=== PATIENT | male | born 2000 | race Caucasian/White ===

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

== ENCOUNTER 2022-04-10 20:26 | Emergency (ER) | payer MEDICAID, SELFPAY ==
[2022-04-10 20:33] VITALS: BP 129/78; PULSE 98; RESP 18; TEMP 36.6; O2SAT 97
--- NOTE | 2022-04-10 20:45 | DI.RAD_ITS ---
Exam(s) XR KNEE RT 4V+ EXAM: XR KNEE RT 4V+ CLINICAL HISTORY: struck with softball. TECHNIQUE: 2D digital imaging was performed. Three views. COMPARISON: CR,XR XR KNEE LT 3V AP,LAT,ALTAF from 06/18/2021 FINDINGS: BONES: No acute fracture is present. No bony destructive lesion is seen. JOINTS: The knee is normally aligned. No joint effusion is seen. SOFT TISSUE: Normal. IMPRESSION: Unremarkable radiographs of the right knee. DATA REPOSITORY: RADIATION DOSE DELIVERED:
--- NOTE | 2022-04-10 21:01 | ED.GENADUL_ITS ---
Discharge Plan Disposition Patient Disposition: HOME Condition: Stable Discharge Details Clinical Impression: Knee pain, right Primary Care Provider: Malika Lyons ED Provider: Graham Ojeda Home Meds and New Rx's Prescriptions: Continued sertraline 100 mg tablet 100 mg PO DAILY Qty: 30 1RF Rx Instructions: take one tablet once days Discharge Instructions Instructions: Knee Pain (ED) Additional Instructions: X-ray is unremarkable. Wear Mike wrap and or sleeve as needed, advance activity as tolerated. Rest, elevate, cool compresses every 2 hours for 20 minutes. [id number] Tylenol and/or Motrin as directed for discomfort. Please watch for new or worsening symptoms and return to the ER for any concerns. Lastly, I have given you the name and number of our local orthopedic team, please follow- up in 1 to 2 weeks if symptoms not improving Referrals: Luis Modi MD [ [facility] STAFF PHYSICIAN] - Discharge Data Discharge Date/Time-TO BE ENTERED AT DEPARTURE: 04/10/22 22:44 Medical Decision Making 21-year-old male who was struck directly in his right knee with a softball on Monday, subsequently falling. He was running to [place] and the ball was missed by the first basement striking him in the leg. He denies any other in jury. He has been ambulatory. Examination consistent with a contusion. Will obtain x-ray to rule out bony involvement or effusion X-ray unremarkable. Discussed options such as Mike wrap and crutches, patient declines. We discussed conservative measures with [id number] medication, resting, elevating, cool compresses, and if symptoms persist orthopedic follow- up. Standard discharge and return precautions were provided. Patient understands, is agreeable to this plan, and has no additional questions or concerns upon discharge. This documentation was generated using [employer] system, please disregard any oddities of phrase or misspellings. Medical Records Medical records reviewed: Yes I reviewed the patient's medical records. Imaging Data Radiologic Study: Attestation: I personally reviewed and interpreted this imaging study as follows: Imaging: X-Ray Radiologist's impression: PROCEDURE INFORMATION: Exam: XR Right Knee Exam date and time: 04/10/2022 9:34 PM Age: 21 years old Clinical indication: Pain; Right; Patient HX: Struck by softball lateral R knee TECHNIQUE: Imaging protocol: Radiologic exam of the Right knee. Views: 4 or more views. COMPARISON: CR RIGHT FOOT COMPLETE 01/24/2018 5:58 PM FINDINGS: Mildly limited due to positioning on the lateral film Bones/joints: No acute fracture or dislocation Soft tissues: Normal. IMPRESSION: No acute findings. HPI General Mode of arrival: ambulatory . Date/Time Provider Initiated Documentation: 04/10/22 20:55 . Limitations to Documentation: no limitations . Information obtained by: patient . History of Present Illness 21 year old M presents to the emergency department with the chief complaint of R knee pain, described as moderate, with intensity rated at 6. Quality is described as aching, and is localized to the right and lower extremity. Patient reports no radiation. Patient started experiencing this day(s) (3) and it has been constant. Immobilization improves symptom(s), Movement worsens symptoms . Patient notes no other symptoms.. Patient did receive the following treatments prior to arrival, none Related Data Home Medications Medication Instructions Recorded Confirmed sertraline 100 mg tablet 100 mg PO DAILY #30 tabs 12/29/21 04/10/22 Previous Rx's Medication Instructions Recorded sertraline 100 mg tablet 100 mg PO DAILY #30 tabs 12/29/21 Allergies Allergy/AdvReac Type Severity Reaction Status Date / Time No Known Allergies Allergy Verified 11/17/21 14:28 General Stated Complaint: Orthopedic JAIMIE: 4 Review of Systems Constitutional Constitutional: Denies weakness Musculoskeletal Musculoskeletal: Reports arthralgias, Denies numbness, Reports stiffness and Denies tingling Integumentary/Breasts Skin/Breast: Denies erythema Neurologic Neurologic: Denies numbness, Denies tingling and Denies weakness PFSH All Active Problems (Updated 04/10/22 @ 22:32 by STELLA Martell) Knee pain, right (Acute) Insomnia (Acute) Suicidal ideation (Acute) Anxiety and depression (Chronic) Use of cannabis (Chronic) History of meniscal tear (Chronic) partial tear of meniscus of right knee Low back pain (Chronic) secondary to injury about 6 years and 3 years ago Problems with learning (Chronic) History of diagnosis of ADHD and ODD- no meds currently; IEP in place for reading comprehension, written expression, and math calculation support Surgical History Adenoidectomy Myringotomy w/ PE (pressure equalizing) tubes Family History Mother Hyperlipidemia Mental disorder depression or anxiety Hypertension Father Asthma Sibling Mental disorder depression or anxiety Social History Smoking/Tobacco Use Status: Never Second Hand Exposure: Yes Smoking risk assessment performed?: Yes Alcohol Intake: current Alcohol Intake frequency: holidays/special occasions only Drug use: Daily Substance use type: marijuana Household members: other Details: Was living with mom but she is moving to [place]; now with dad Education Level: high school Details: 12th grade [employer] Fall 2020 Pets and animals: Yes Pets and animals: dog(s) Sexually active: Yes Do you think of yourself as: straight/heterosexual Current gender identity: male What type of physical activity do you participate in: other Details: active in sports- soccer mostly- may play baseball and basketball as well Seatbelt use: always Helmet use: Yes 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 ) Do you feel safe at home: Yes Do you feel safe in your relationship?: Yes Additional Social history: Living with dad who has CTE and is disabled- unable to drive; 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; has been working at [employer] as a [employer] Exam Const General: cooperative, healthy appearing, comfortable and no acute distress Orientation: alert and awake [facility] Head: normal to inspection, normocephalic and atraumatic Eyes Conjunctivae: conjunctivae normal Neck Neck: normal visual inspection, trachea midline and supple Resp Effort & Inspection: normal respiratory effort and able to speak in complete sentences Cardio Rate: regular rate Rhythm: regular rhythm Skin General skin exam: no rashes or lesions noted Neuro General: patient alert, patient awake, moves all extremities and no focal motor deficits Cognition: normal cognition Speech: speech normal Gait: antalgic (Minimally) Sensory Exam: no sensory deficits noted Extrem General: full ROM and capillary refill normal Knee images: 1. Contusion, tenderness. Knee with full range of motion. Stable. Slight increased pain with valgus stress, no laxity. Neuro, vascular, tendon intact. Psych Appearance: grossly normal Mental Status: mental status grossly normal Course Vital Signs Vital signs: Vital Signs Temperature 36.6 C 04/10/22 20:33 Pulse 98 H 04/10/22 20:33 Respiratory Rate 18 04/10/22 20:33 Blood Pressure 129/78 04/10/22 20:33 Pulse Oximetry 97 04/10/22 20:33 Temperature 36.6 C 04/10/22 20:33 Temperature Source Skin 04/10/22 20:33 Pulse 98 H 04/10/22 20:33 Respiratory Rate 18 04/10/22 20:33 Respiratory Effort 04/10/22 20:36 Blood Pressure 129/78 04/10/22 20:33 Blood Pressure Position Sitting 04/10/22 20:33 Pulse Oximetry 97 04/10/22 20:33 Oxygen Delivery Method Room Air 04/10/22 20:33 Oxygen Flow Rate 0 04/10/22 20:33 Pain Level 7 04/10/22 20:36 Comment 04/10/22 20:33
--- NOTE | 2022-04-10 22:31 | DI.VRAD_ITS ---
PROCEDURE INFORMATION: Exam: XR Right Knee Exam date and time: 04/10/2022 9:34 PM Age: 21 years old Clinical indication: Pain; Right; Patient HX: Struck by softball lateral R knee TECHNIQUE: Imaging protocol: Radiologic exam of the Right knee. Views: 4 or more views. COMPARISON: CR RIGHT FOOT COMPLETE 01/24/2018 5:58 PM FINDINGS: Mildly limited due to positioning on the lateral film Bones/joints: No acute fracture or dislocation Soft tissues: Normal. IMPRESSION: No acute findings. Dictated and Authenticated by: Shai Aguilar MD. Ordering:QUOC Stevenson MD
== END 2022-04-10 22:44 | disposition home or self-care (01) ==
PROVIDERS: Emergency Provider Physician Assistant
DX: S80.01XA Contusion of right knee, initial encounter (principal); W21.07XA Struck by softball, initial encounter; W18.39XA Other fall on same level, initial encounter; Y93.02 Activity, running
CPT/HCPCS: 99283; 73564; 99282

== ENCOUNTER 2023-03-11 16:56 | Emergency (ER) | payer MEDICAID, SELFPAY ==
[2023-03-11 16:57] VITALS: BP 162/105; PULSE 85; RESP 15; O2SAT 98
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
[2023-03-11 17:03] VITALS: BP 162/105; PULSE 71
[2023-03-11 17:16] VITALS: BP 164/99; PULSE 65
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
[2023-03-11 17:39] VITALS: BP 153/100; PULSE 65
[2023-03-11] MEDS: Ibuprofen 600 MG TAB PO (17:39)
[2023-03-11] MEDS: Ondansetron O.D.T. 4 MG TABEF PO (17:39)
[2023-03-11] MEDS: Acetaminophen 500 MG TAB 1000 MG PO (17:39)
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
== END 2023-03-11 18:55 | disposition home or self-care (01) ==
PROVIDERS: Emergency Provider Nurse Practitioner Acute Care
DX: S09.90XA Unspecified injury of head, initial encounter (principal); R51.9 Headache, unspecified; R11.2 Nausea with vomiting, unspecified; V43.52XA Car driver injured in collision with other type car in traffic accident, initial encounter
CPT/HCPCS: 96374; 96375; 99284; 70450; 72125; 99283

== ENCOUNTER 2024-01-27 00:52 | Emergency (ER) | payer MEDICAID, SELFPAY ==
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
[2024-01-27 00:55] VITALS: BP 160/84; PULSE 103; RESP 14; TEMP 36.3; O2SAT 100
--- NOTE | 2024-01-27 01:00 | ED.GENADUL_ITS ---
Discharge Plan Disposition Patient Disposition: Home Condition: Good Discharge Details Clinical Impression: Contusion of hand, right, Right wrist sprain Primary Care Provider: Unknown,Unknown ED Provider: Tomy Quesada Home Meds and New Rx's Prescriptions: No Action sertraline 100 mg tablet 150 mg PO DAILY Rx Instructions: take one tablet once days Discharge Instructions Instructions: Minor Contusion ED Additional Instructions: At this time the radiologist does not see any evidence of a fracture for your hand or your wrist. There could be a very small fracture that can just not be visualized at this time. Please take Tylenol and Motrin for pain, ice the area frequently. Use the wrist splint for the next 1 to 2 weeks. If you still have persistent or worsening pain after 1 to 2 weeks of conservative therapy you may need repeat x-rays for reassessment. If you notice any worsening of your symptoms, or any new symptoms such as vomiting, diarrhea, fever, chills, shortness of breath, chest pain, numbness, weakness, or fainting , please return immediately to the emergency department for reevaluation. Please follow up with your primary care provider as soon as possible for reassessment and reevaluation. As always, it was a pleasure participating in your medical care today. Stand Alone Forms: Work Release HPI General Date/Time Provider Initiated Documentation: 01/27/24 00:55 . HPI Narrative: This is a 23-year-old male with a past medical history of anger issues, previous injury to his right dominant hand and wrist from punching things, presents today for evaluation of right hand and wrist pain after punching things. Patient got angry at work, hit his hand on a wall and then punched a door. He developed pain over the second third and fourth MCP joints, as well as the anatomical snuffbox. He came into the ER for further assessment. Pain is present with movement. Improved by nothing. He denies numbness or tingling. Related Data Home Medications ?Medication ?Instructions ?Recorded ?Confirmed sertraline 100 mg tablet 150 mg PO DAILY 01/27/24 01/27/24 Allergies Allergy/AdvReac Type Severity Reaction Status Date / Time No Known Allergies Allergy Verified 01/27/24 01:17 General Stated Complaint: Orthopedic JAIMIE: 4 Review of Systems All systems reviewed & are unremarkable except as noted in HPI and below Exam Narrative Exam Narrative: 1.Const: Well-nourished, Well-developed, appearing stated age 2.Eyes: PERRL, no conjunctival injection, and symmetrical lids. 3.ENT: Atraumatic external nose and ears. Moist MM. Neck: Symmetric, trachea midline, No thyromegaly. 4.CVS: +S1/S2, No murmurs or gallops. Peripheral pulses 2+ and equal in all extremities. Brisk capillary refill in all extremities. 5.RESP: Unlabored respiratory effort. Clear to auscultation bilaterally. No wheezes rales or rhonchi 6.GI: Soft, Nontender/Nondistended, No hepatosplenomegaly. No guarding or rebound. 7.MSK: Patient demonstrates tenderness over the second third and fourth MTP joints in the right hand, minimal swelling. There is also mild tenderness over the anatomical snuffbox. No redness or deformity otherwise. 8.Skin: Warm, Dry. No rashes or lesions. 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 Sensation grossly intact, no focal neurologic deficits. 10.Psych: (AAO) x3. Appropriate mood and affect Course Vital Signs Vital signs: Vital Signs Temperature 36.3 C L 01/27/24 00:55 Pulse 103 H 01/27/24 00:55 Respiratory Rate 14 01/27/24 00:55 Blood Pressure 160/84 H 01/27/24 00:55 Pulse Oximetry 100 01/27/24 00:55 Temperature 36.3 C L 01/27/24 00:55 Temperature Source Tympanic 01/27/24 00:55 Pulse 103 H 01/27/24 00:55 Respiratory Rate 14 01/27/24 00:55 Blood Pressure 160/84 H 01/27/24 00:55 Blood Pressure Position Sitting 01/27/24 00:55 Pulse Oximetry 100 01/27/24 00:55 Oxygen Delivery Method Room Air 01/27/24 00:55 Oxygen Flow Rate 0 01/27/24 00:55 Pain Level 8 01/27/24 00:55 Medical Decision Making This is a 23-year-old male with a past medical history of anger issues, previous injury to his right dominant hand and wrist from punching things, presents today for evaluation of right hand and wrist pain after punching things. Patient got angry at work, hit his hand on a wall and then punched a door. He developed pain over the second third and fourth MCP joints, as well as the anatomical snuffbox. He came into the ER for further assessment. Pain is present with movement. Improved by nothing. He denies numbness or tingling. Exam demonstrates tenderness over the second third and fourth MTP joints, as well as the anatomical snuffbox on the right. No other abnormality deformity or tenderness. Differential is highest for contusion versus fracture. Will get x- rays of the wrist and hand, give Tylenol Motrin monitor closely and reassess. 2 AM X-ray shows no evidence of acute fracture per radiology. However because of the patient's tenderness over the anatomical snuffbox we will get a thumb spica for the patient's use at home. Recommend avoidance of aggravating activities, recommend Tylenol Motrin and ice. Discussed red flags which to return. I have extensively reviewed the treatment plan and discharge instructions with the patient. I have addressed all patient concerns at this time. The patient was made aware of what symptoms to monitor for that would warrant a return to the emergency department. Discussed the plan with the patient, they demonstrate ve rbal understanding and agreement with our assessment and plan at this time. The documentation in this chart was dictated using [employer] dictation software. Please excuse any dictation errors. FINDINGS: Bones/joints: Bone mineralization is age-appropriate. There is no evidence of fracture. No evidence of dislocation. The joint spaces are adequately preserved; no significant degenerative narrowing and no bony erosion seen. Soft tissues: No radiopaque foreign body present. There is mild soft tissue swelling present. IMPRESSION: 1. No acute osseous abnormality. 2. There is mild soft tissue swelling present. Thank you for allowing us to participate in the care of your patient. Dictated and Authenticated by: Royce Osorio MD 01/27/2024 1:26 AM Eastern Time ([place] & [place]) Quality:SDOH Health Related Social Needs: No Data to Display PFSH All Active Problems (Updated 01/27/24 @ 01:43 by Tomy Quesada DO) Right wrist sprain (Acute) Contusion of hand, right (Acute) Insomnia (Acute) Suicidal ideation (Acute) Anxiety and depression (Chronic) Use of cannabis (Chronic) History of meniscal tear (Chronic) partial tear of meniscus of right knee Low back pain (Chronic) secondary to injury about 6 years and 3 years ago Problems with learning (Chronic) History of diagnosis of ADHD and ODD- no meds currently; IEP in place for reading comprehension, written expression, and math calculation support Surgical History Myringotomy w/ PE (pressure equalizing) tubes Adenoidectomy Family History Mother Hyperlipidemia Mental disorder depression or anxiety Hypertension Father Asthma Sibling Mental disorder depression or anxiety Social History Smoking/Tobacco Use Status: Current every day Tobacco Type: e-cigarettes Second Hand Exposure: Yes Smoking risk assessment performed?: Yes Alcohol Intake: current Alcohol Intake frequency: a few times a week Alcohol type: beer and hard liquor Drug use: Daily Substance use type: marijuana Household members: other Details: Was living with mom but she is moving to [place]; now with dad Education Level: high school Details: 12th grade [employer] Fall 2020 Pets and animals: Yes Pets and animals: dog(s) Sexually active: Yes Do you think of yourself as: straight/heterosexual Current gender identity: male What type of physical activity do you participate in: other Details: active in sports- soccer mostly- may play baseball and basketball as well Seatbelt use: always Helmet use: Yes 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
[2024-01-27] MEDS: Acetaminophen 500 MG TAB 1000 MG PO (01:11)
[2024-01-27] MEDS: Ibuprofen 800 MG TAB PO (01:11)
--- NOTE | 2024-01-27 01:26 | DI.VRAD_ITS ---
PROCEDURE INFORMATION: Exam: XR Right Hand Exam date and time: 01/27/2024 1:13 AM Age: 23 years old Clinical indication: Injury or trauma; Other: Punched wall, pain at snuff box; Blunt trauma (contusions or hematomas); Hand; Right TECHNIQUE: Imaging protocol: Radiologic exam of the right hand. Views: 3 or more views. COMPARISON: No relevant prior studies available. FINDINGS: Bones/joints: Bone mineralization is age-appropriate. There is no evidence of fracture. No evidence of dislocation. The joint spaces are adequately preserved; no significant degenerative narrowing and no bony erosion seen. Soft tissues: No radiopaque foreign body present. There is mild soft tissue swelling present. IMPRESSION: 1. No acute osseous abnormality. 2. There is mild soft tissue swelling present. Dictated and Authenticated by: Royce Osorio MD. Ordering:ZULAY Huitron MD
--- NOTE | 2024-01-27 01:27 | DI.VRAD_ITS ---
PROCEDURE INFORMATION: Exam: XR Right Wrist Exam date and time: 01/27/2024 1:13 AM Age: 23 years old Clinical indication: Injury or trauma; Other: Punched wall, pain at snuff box; Blunt trauma (contusions or hematomas); Wrist; Right TECHNIQUE: Imaging protocol: Radiologic exam of the right wrist. Views: 3 or more views. COMPARISON: CR XR HAND RT COMPLETE 01/27/2024 1:13 AM FINDINGS: Bones/joints: Bone mineralization is age-appropriate. There is no evidence of fracture. No evidence of dislocation. The joint spaces are adequately preserved; no significant degenerative narrowing and no bony erosion seen. Soft tissues: No radiopaque foreign body present. There is mild soft tissue swelling present. IMPRESSION: 1. No acute osseous abnormality. 2. There is mild soft tissue swelling present. Dictated and Authenticated by: Royce Osorio MD. Ordering:ZULAY Huitron MD
== END 2024-01-27 01:54 | disposition home or self-care (01) ==
PROVIDERS: Emergency Provider Student in an Organized Health Care Education/Training Program
DX: S60.221A Contusion of right hand, initial encounter (principal); S63.501A Unspecified sprain of right wrist, initial encounter; W22.01XA Walked into wall, initial encounter; Y93.89 Activity, other specified; F17.290 Nicotine dependence, other tobacco product, uncomplicated
CPT/HCPCS: 99283; 73110; 73130

== ENCOUNTER 2024-04-30 00:05 | Emergency (ER) | payer MEDICAID, SELFPAY ==
[2024-04-30 00:08] VITALS: BP 152/87; PULSE 78; RESP 16; TEMP 37.1; O2SAT 99
[2024-04-30 00:13] VITALS: RESP 27
--- NOTE | 2024-04-30 00:14 | ED.GENADUL_ITS ---
Discharge Plan Disposition Patient Disposition: Home Condition: Good Discharge Details Clinical Impression: Acute anxiety Primary Care Provider: Unknown,Unknown ED Provider: Jem Song and New Rx's Prescriptions: Continued sertraline 100 mg tablet 150 mg PO DAILY Rx Instructions: take one tablet once days Discharge Instructions Instructions: Anxiety, Adult ED Additional Instructions: Your EKG, chest x-ray, laboratory studies and exam are all reassuring. Be sure to take your sertraline daily as prescribed. Please follow-up with your primary care within the next week. Return to ED for any syncope, new or worsening pain, neurologic change, other concerns. HPI General Mode of arrival: ambulatory . Date/Time Provider Initiated Documentation: 04/30/24 00:14 . Limitations to Documentation: no limitations . Information obtained by: patient and RN notes reviewed . HPI Narrative: Patient presenting to ED with complaint of chest and back pain. Patient reports developed anxiety attack over the last couple of hours. He has had these many times in the past. What he has not had was chest pain and tightness as well as pain in his back. He has felt lightheaded and dizzy but has not had syncope. Denies any neurologic change. Denies any headache. Has not been sick recently and denies fever, cough, abdominal pain, vomiting, diarrhea. Denies any cocaine use. He does smoke electronic cigarettes. Denies any significant past medical history. Of note has not taken his sertraline in about a week. Did take it today. Related Data Home Medications ?Medication ?Instructions ?Recorded ?Confirmed sertraline 100 mg tablet 150 mg PO DAILY 01/27/24 04/30/24 Allergies Allergy/AdvReac Type Severity Reaction Status Date / Time No Known Allergies Allergy Verified 04/30/24 00:11 General Stated Complaint: Anxiety JAIMIE: 3 Review of Systems Narrative: Per HPI Exam Narrative Exam Narrative: Const: WDWN male in NAD. VS per triage. HEENT: NC/AT. Normal facial exam. Neck: Supple. Trachea midline. Lungs: Normal respiratory effort. Lungs are clear. Cor: RRR without murmur. Good radial pulses. GI: Soft/ND/NT. Neuro: A+O x 3. Normal speech, mentation, gait. Cranial nerves II - XII grossly intact. No gross motor or sensory deficit. Ext: No C/C/E. Course Vital Signs Vital signs: Vital Signs Temperature 98.7 F 04/30/24 00:08 Pulse 78 04/30/24 00:08 Respiratory Rate 16 04/30/24 00:08 Blood Pressure 152/87 H 04/30/24 00:08 Pulse Oximetry 99 04/30/24 00:08 Temperature 98.7 F 04/30/24 00:08 Temperature Source Temporal Artery Scan 04/30/24 00:08 Pulse 78 04/30/24 00:08 Respiratory Rate 16 04/30/24 00:08 Blood Pressure 152/87 H 04/30/24 00:08 Blood Pressure Position Sitting 04/30/24 00:08 Pulse Oximetry 99 04/30/24 00:08 Oxygen Delivery Method Room Air 04/30/24 00:08 Oxygen Flow Rate 0 04/30/24 00:08 Pain Level 9 04/30/24 00:08 Medical Decision Making Patient presenting to ED with chest pain and back pain associated with acute anxiety/panic attack. Some symptoms consistent with his previous problems with anxiety. Hyperventilation present and causing his lightheaded and dizziness. He reports that he has never had chest pain or back pain like this. Suspect it is likely all related to his anxiety attack. He is low risk for PE and subsequently PERCs out. An EKG is sinus rhythm with early repolarization likely normal variant given his age. Given his e-cigarette use and nonspecific EKG changes he does score a 2 on HEAR. He has breath sounds bilaterally and I doubt pneumothorax but will obtain chest x-ray. Presentation is not concerning for aortic dissection. Will obtain labs including a delta troponin. Patient's laboratory studies are all normal. Chest x-ray per my read with no acute cardiopulmonary disease. Patient encouraged to continue his sertraline and follow-up with primary care. Return precautions provided. Imaging Data Radiologic Study: Attestation: I personally reviewed and interpreted this imaging study as follows: Imaging: X-Ray My impression: Normal CXR Lab Data Lab results reviewed: Yes I reviewed the patient's lab results. Lab results narrative: see [facility] ECG Data Attestation: I personally reviewed and interpreted this ECG (s) as follows: Prior ECG tracings: not available for review Interpretation: see [facility] PFSH All Active Problems (Updated 04/30/24 @ 02:16 by Jem Song MD) Acute anxiety (Acute) Insomnia (Acute) Use of cannabis (Chronic) History of meniscal tear (Chronic) partial tear of meniscus of right knee Low back pain (Chronic) secondary to injury about 6 years and 3 years ago Problems with learning (Chronic) History of diagnosis of ADHD and ODD- no meds currently; IEP in place for reading comprehension, written expression, and math calculation support Medical History Anxiety and depression Surgical History Myringotomy w/ PE (pressure equalizing) tubes Adenoidectomy Family History Mother Hyperlipidemia Mental disorder depression or anxiety Hypertension Father Asthma Sibling Mental disorder depression or anxiety Social History Smoking/Tobacco Use Status: Current every day Tobacco Type: e-cigarettes Second Hand Exposure: Yes Smoking risk assessment performed?: Yes Alcohol Intake: current Alcohol Intake frequency: a few times a week Alcohol type: beer and hard liquor Drug use: Daily Substance use type: marijuana Details: BINGE DRINKS ALCOHOL AND USES MARAJUANA DAILY Household members: other Details: Was living with mom but she is moving to [place]; now with dad Housing: apartment Education Level: high school Details: 12th grade [employer] Fall 2020 Pets and animals: Yes Pets and animals: dog(s) Sexually active: Yes Do you think of yourself as: straight/heterosexual Current gender identity: male What type of physical activity do you participate in: other Details: active in sports- soccer mostly- may play baseball and basketball as well Seatbelt use: always Helmet use: Yes Drive 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
--- NOTE | 2024-04-30 00:15 | RT.EKG_ITS ---
APPROVED REPORT Exam: Resting ECG Reason for Exam: Patient Location: E HR:66 bpm ECG Measurements Heart Rate 66 AXIS WA 154 P 71 QRSd 83 QRS 85 QT 379 T 49 QTc 399 Conclusion Sinus rhythm...normal P axis, V-rate 60- 99 ST elev, probable normal early repol pattern...ST elevation, age<55 Normal Lucas I have reviewed and interpreted ECG and agree with software generated interpretation.
--- NOTE | 2024-04-30 00:15 | DI.RAD_ITS ---
Exam(s) XR CHEST 2V PA LATERAL EXAM: XR CHEST 2V PA LATERAL CLINICAL HISTORY: CP TECHNIQUE: 2D digital imaging was performed. Two views. COMPARISON: No exams were available for comparison FINDINGS: HEART: Normal size. Aorta: Not dilated. PULMONARY VASCULATURE: Normal. MEDIASTINUM: Unremarkable. LUNGS: Clear. PLEURAL SPACE: No pleural effusion or pneumothorax. BONE:Unremarkable for age. SOFT TISSUES: Unremarkable. IMPRESSION: No acute abnormality. DATA REPOSITORY: RADIATION DOSE DELIVERED:
[2024-04-30 00:45] LABS: HCT 47.2 % (40.0-50.0); HGB 15.6 g/dL (13.5-17.5); MCH 29.3 pg (27.0-33.0); MCHC 33.1 % (32.0-36.0); MCV 89 fL (80-95); MPV 10.2 fL (8.0-11.0); Platelet Count 215 10^3/uL (130-400); RBC 5.33 10^6/uL (4.36-5.78); RDW 13.9 % (11.8-14.1); RDW-SD 45.1 fL; WBC 10.57 10^3/uL (4.4-10.8)
[2024-04-30 01:03] LABS: Troponin I 7 ng/L (<or=76)
[2024-04-30 01:09] LABS: Anion Gap 6.1 mmol/L (3-11); BUN 16 mg/dL (7-18); CO2 28.9 mmol/L (21.0-32.0); Calcium 9.9 mg/dL (8.5-10.1); Chloride 106 mmol/L (98-107); Estimated GFR 109.81 (mL/min/1.73m2); Glucose 97 mg/dL (74-106); Magnesium 2.4 mg/dL (1.8-2.4); Potassium 4.4 mmol/L (3.5-5.1); Sodium 141 mmol/L (136-145); TSH (W/Ref FT4) 3.56 uIU/mL (0.36-3.74)
[2024-04-30 02:02] LABS: Troponin I 5 ng/L (<or=76)
[2024-04-30 02:24] VITALS: BP 129/72; PULSE 65; RESP 16; O2SAT 100
--- NOTE | 2024-04-30 02:30 | DI.VRAD_ITS ---
PROCEDURE INFORMATION: Exam: XR Chest Exam date and time: 04/30/2024 12:59 AM Age: 23 years old Clinical indication: Pain; Other: Cp TECHNIQUE: Imaging protocol: Radiologic exam of the chest. Views: 2 views. COMPARISON: CT HEAD CERVICAL SPINE WO 03/11/2023 5:23 PM FINDINGS: Lungs: Unremarkable. No consolidation. Pleural spaces: Unremarkable. No pleural effusion. No pneumothorax. Heart/Mediastinum: Unremarkable. No cardiomegaly. Bones/joints: Unremarkable. IMPRESSION: Normal chest x-ray. Dictated and Authenticated by: Cleve Cox MD. Ordering:TRAE Parish MD
== END 2024-04-30 02:26 | disposition home or self-care (01) ==
PROVIDERS: Emergency Provider Emergency Medicine
DX: R07.9 Chest pain, unspecified (principal); R42 Dizziness and giddiness; F41.9 Anxiety disorder, unspecified
CPT/HCPCS: 36415; 80048; 85027; 93005; 99283; 71046; 83735; 84443; 84484; 93010

== ENCOUNTER 2025-03-22 12:41 | Emergency (ER) | payer SELFPAY ==
[2025-03-22 12:46] VITALS: BP 127/91; PULSE 75; RESP 16; TEMP 36.6; O2SAT 98
--- NOTE | 2025-03-22 13:39 | ED.GENADUL_ITS ---
Discharge Plan Disposition Patient Disposition: Home Discharge Details Clinical Impression: Depression with suicidal ideation, Use of cannabis Primary Care Provider: None,None ED Provider: Yariel Zamudio Home Meds and New Rx's Prescriptions: No Action sertraline 100 mg tablet 150 mg PO DAILY Rx Instructions: take one tablet once days Discharge Instructions Instructions: Suicide Prevention, Depression, Adult ED Additional Instructions: Please follow-up with your primary care provider regarding your visit to the emergency department today. Be sure to discuss results of all test performed here today to include radiology, and laboratory testing as well as results for any pending cultures. Should your symptoms worsen, or if you develop new concerning symptoms, please return immediately emergency department for further evaluation. Discharge Data Discharge Date/Time-TO BE ENTERED AT DEPARTURE: 03/22/25 16:41 HPI General Date/Time Provider Initiated Documentation: 03/22/25 12:43 . HPI Narrative: MDM/Narrative: 1. Suicidal ideation. Presents with active suicidal ideation, a plan involving his father's gun. Medically cleared by SMART clearance protocol. Will be moved to Zone B and engage mental health team for further assessment. ED Course: Case discussed with [facility] who has evaluated the patient and was able to safety plan with him and is deemed stable for discharge. Disposition: Discharge following safety planning with [facility] and planned outpatient follow up This document was created with assistance from BECKIE Elliott. The patient consented to its use. HPI: The patient is a 24-year-old male with a history of depression, presenting for evaluation of suicidal ideation. The patient reports experiencing significant psychosocial stressors related to occupational and personal circumstances over the past year, resulting in feelings of entrapment and hopelessness. He recently disclosed to his family thoughts of self-harm involving his father's firearm, which he no longer has access to. Several months prior, he attempted suicide by hanging, but the attempt was unsuccessful due to the rope breaking, an incident he had not previously disclosed. The patient denies any physical complaints, neurological symptoms, visual or auditory hallucinations, or homicidal ideation. He admits to intermittent cannabis use but denies the use of other illicit substances. He has a history of pharmacological treatment for depression, although he is unable to recall the specific medication. ROS: Negative besides as mentioned above Exam: Vital signs: Reviewed. General Appearance: Alert and oriented. No acute distress. HEENT: NCAT, EOMI, not icteric. External ears normal. No rhinorrhea. Moist mucous membranes. Neck: Supple, full range of motion, no observable masses, No meningeal sign. Respiratory: No Respiratory distress. No tachypnea. Cardiovascular: RRR, no edema. Gastrointestinal: Soft, nondistended, No rebound tenderness. Back: No midline tenderness to palpation or palpable step-offs of the C/T/L spine. Skin: Warm and dry, no rash. Neurological: Normal Gait, Grossly intact. Psychiatric: Appropriate for situation. Laboratory Tests Range/Units 03/22/25 14:12 Urine Color (Yellow) Yellow Urine Clarity (Clear) Clear Urine pH (5-8) 7.0 Ur Specific [place] (1.005-1.025) 1.015 Urine Protein (Neg-Trace) mg/dL Negative Urine Ketones (Negative) mg/dL Negative Urine Blood (Negative) Negative Urine Nitrite (Negative) Negative Urine Bilirubin (Negative) Negative Urine Urobilinogen (Up to 0.2) mg/dL 0.2 Ur Leukocyte Esterase (Negative) Negative Urine Glucose (Negative) mg/dL Negative Urine Opiates Screen (Negative) Negative Urine Methadone Screen (Negative) Negative Ur Barbiturates Screen (Negative) Negative Ur Tricyclics Screen (Negative) Negative Ur Amphetamines Screen (Negative) Negative U Benzodiazepines Scrn (Negative) Negative Urine Cocaine Screen (Negative) Negative Ur THC Screen (Negative) Positive A Related Data Home Medications ?Medication ?Instructions ?Recorded ?Confirmed sertraline 100 mg tablet 150 mg PO DAILY 01/27/24 Allergies Allergy/AdvReac Type Severity Reaction Status Date / Time No Known Allergies Allergy Verified 03/22/25 12:59 General Stated Complaint: PsychEval JAIMIE: 2 Course Vital Signs Vital signs: Vital Signs Temperature 36.6 C 03/22/25 12:46 Pulse 75 03/22/25 12:46 Respiratory Rate 16 03/22/25 12:46 Blood Pressure 127/91 H 03/22/25 12:46 Pulse Oximetry 98 03/22/25 12:46 Temperature 36.6 C 03/22/25 12:46 Temperature Source Oral 03/22/25 12:46 Pulse 75 03/22/25 12:46 Respiratory Rate 16 03/22/25 12:46 Blood Pressure 127/91 H 03/22/25 12:46 Blood Pressure Position Sitting 03/22/25 12:46 Pulse Oximetry 98 03/22/25 12:46 Oxygen Delivery Method Room Air 03/22/25 12:46 Oxygen Flow Rate 0 03/22/25 12:46 Pain Level 0 03/22/25 12:46 PFSH All Active Problems (Updated 03/22/25 @ 16:17 by Yariel Zamudio MD) Depression with suicidal ideation (Acute) Insomnia (Acute) Use of cannabis (Chronic) History of meniscal tear (Chronic) partial tear of meniscus of right knee Low back pain (Chronic) secondary to injury about 6 years and 3 years ago Problems with learning (Chronic) History of diagnosis of ADHD and ODD- no meds currently; IEP in place for reading comprehension, written expression, and math calculation support Medical History Anxiety and depression Surgical History Myringotomy w/ PE (pressure equalizing) tubes Adenoidectomy Family History Mother Hyperlipidemia Mental disorder depression or anxiety Hypertension Father Asthma Sibling Mental disorder depression or anxiety Social History Smoking/Tobacco Use Status: Current every day Tobacco Type: e-cigarettes Second Hand Exposure: Yes Smoking risk assessment performed?: Yes Alcohol Intake: current Alcohol Intake frequency: a few times a week Alcohol type: beer and hard liquor Drug use: Daily Substance use type: marijuana Details: BINGE DRINKS ALCOHOL AND USES MARAJUANA DAILY Household members: other Details: Was living with mom but she is moving to [place]; now with dad Housing: apartment Education Level: high school Details: 12th grade [employer] Fall 2020 Pets and animals: Yes Pets and animals: dog(s) Sexually active: Yes Do you think of yourself as: straight/heterosexual Current gender identity: male What type of physical activity do you participate in: other Details: active in sports- soccer mostly- may play baseball and basketball as well Seatbelt use: always Helmet use: Yes Drive intox or ride w/intox 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
[2025-03-22 14:42] LABS: Cannabinoids THC Positive (Negative); METHADONE URINE SCREEN Negative (Negative)
[2025-03-22 14:48] LABS: Glucose Negative (Negative)
[2025-03-22] MEDS: Acetaminophen 500 MG TAB 1000 MG PO (15:55)
--- NOTE | 2025-03-22 22:55 | PDOC.MHCN_ITS ---
Date of service: 03/22/25 Time of Service: 03:00 PHQ-9 Over the last 2 weeks, how often have you been bothered by any of the following problems? 1. Little interest or pleasure in doing things: more than half the days 2. Feeling down, depressed, or hopeless: several days 3. Trouble falling or staying asleep, or sleeping too much: nearly every day 4. Feeling tired or having little energy: several days 5. Poor appetite or overeating: more than half the days 6. Feeling bad about yourself - or that you are a failure or have let yourself and your family down: more than half the days 7. Trouble concentrating on things, such as reading the newspaper or watching television: not at all 8. Moving or speaking so slowly that other people could have noticed? - Or the opposite - being so fidgety or restless that you have been moving around a lot more than usual: nearly every day 9. Thoughts that you would be better off or of hurting yourself in some way: several days Total score: 15 Source: Developed by Drs. Jem Garcia, Penelope Kimbrough, Sujit Beverly and colleagues, with an educational krishna from [employer]. Suicide Severity Rate CSSRS Have you wished you were or wished you could go to sleep and not wake up?: Yes Have you actually had any thoughts of killing yourself?: Yes CSSRS2 Have you been thinking about how you might do this?: Yes Have you had these thoughts and had some intention of acting on them?: Yes Have you started to work out or worked out the details of how to kill yourself? Do you intend to carry out this plan?: Yes CSSRS3 Have you ever done anything, started to do anything or prepared to do anything to end your life?: Yes CSSRS4 Was this within the past three months?: No Screening Score Total Score: 6 Screening: Positive Mental Health Emergency Note Release [facility] release signed:: Yes Reason for Visit In the last 2 weeks has the pt presented for ES prior to today?: No Asssessment/Mental Status Appearance: Unremarkable Attitude: Cooperative and Friendly Behavior: Unremarkable Speech: Normal Affect: Normal Mood: Stressed, Depressed and Anxious Thought process: Unremarkable Hallucinations: No evidence Delusions: No evidence Attention: Unremarkable Perception: Not impaired Orientation: Fully orientated Memory: Intact Insight: Fair Judgement: Fair Neurovegetative Symptoms Sleep: Decrease (Cant fall asleep, waking up frequently, and lack of consistency) Appetitie: No change Interests: Decrease (reported highs and lows ) Energy: Decrease (reported highs and lows ) Substance Use: Have you used substances in the last 7 days?: yes, Vaping Everyday Impression Mitch is a 24-year old male who presented to [facility] due to suicidal ideations. Mitch reported to this video games storywriter that he has been experiencing some recent life changes, Mitch reported that he recently purchases a new car but it has been giving him issues. Mitch reported that last night he has a suicidal thought attached to a plan for the first time in two years. Mitch reported that he planned to shot himself. Mitch's father has already removed the gun from the home and sent it to Stefania grandfather's house. Mitch reported that he has a history of attempts and NSSI, but two years prior. Mitch reported an interest in getting set up on medications and getting connected with a therapist. Mitch scored a 15 out of 27 on the PHQ-9 and answered yes to all the CSSRS questions. Mitch reported that he has not had a suicidal ideation with a plan since the night prior. Plan/Disposition Recommended Disposition: [facility] Services [facility] Services: Therapy and Med management. Plan: Mitch was safety planned home. Mitch will be calling the agency 03.24.2025 to set up a time to complete intake paperwork and have an in person check in. Referral will be placed for medication management and therapy. Mitch will be going to [facility] and try and get set up on medications. Reports/communication Outcome discussed with: ED/Personnel
== END 2025-03-22 16:41 | disposition home or self-care (01) ==
PROVIDERS: Emergency Provider General Practice
DX: R45.851 Suicidal ideations (principal); F32.A Depression, unspecified; F12.90 Cannabis use, unspecified, uncomplicated
CPT/HCPCS: 00123; 80307; 96127; 99284; 81003